=== PATIENT | male | born 1985 | race Caucasian/White ===

== ENCOUNTER 2017-08-28 03:56 | Emergency (ER) | payer MEDICAID, OTHER ==
[~2017-08-28] VITALS: Ht 175.3 cm; Wt 86.2 kg
[~2017-08-28 03:56] MED LIST: ADDERALL 30 MG30 MG ORAL; AMPICILLIN250 MG PO; COLACE100 MG ORAL; DEPAKOTE250 MG PO; DILAUDID8 MG PO; KEPPRA1000 MG ORAL; NEURONTIN800 MG ORAL; VALPROIC A500 MG/10 ORAL; XANAX2 MG ORAL; iron PO; multivit PO
[2017-08-28 04:10] VITALS: BP 165/97
--- NOTE | 2017-08-28 04:21 | Emergency Room Report ---
History of Present Illness General Chief Complaint: Seizure Source: Patient Present Illness HPI 32-year-old male, history of seizures, on Vimpat, Keppra, and gabapentin, also history of stomach cancer on chemotherapy, presenting with seizure Patient states that he was at his grandmothers house, proceeded to have a 3 minute generalized tonic-clonic seizure. Had some urinary incontinence. No tongue biting. Patient has been compliant with his medications States that he normally gets seizures, almost every other day, does initially come to the emergency room, but he came to the emergency room today because since his grandmother was with him, his grandmother called 911 He is currently denying any headache neck pain motor or sensory weakness. No fever no chills. Has otherwise been in his healthy state Allergies: Coded Allergies: ACETAMINOPHEN (Verified Allergy, Unknown, 03/18/16) CHLORPROMAZINE (Verified Allergy, Unknown, 03/15/16) HALOPERIDOL (Verified Allergy, Unknown, 03/15/16) NSAIDS (NON-STEROIDAL ANTI-INFLAMMA (Unverified Allergy, Unknown, 03/15/16) COPIED FROM UNCODED SECTION Patient History Past Medical History: see triage record Past Surgical History: none Pertinent Family History: none Reviewed Nursing Documentation: PMH: Agreed, PSxH: Agreed Nursing Documentation-PMH Hx Cardiac Problems: No - gastric bypass,sepsis,gallbladder surgery Hx Asthma: Yes Hx Cancer: No Hx Gastrointestinal Problems: Yes Hx Seizures: Yes Review of Systems All Other Systems: negative except mentioned in HPI Physical Exam Vital Signs Date Time Temp Pulse Resp B/P (MAP) Pulse Ox O2 Delivery O2 Flow Rate FiO2 08/28/17 03:59 97.9 85 16 165/97 100 Room Air Sp02 EP Interpretation: reviewed, normal General Appearance: normal inspection, well appearing, no apparent distress, alert, GCS 15, non-toxic Head: normocephalic, atraumatic Eyes: bilateral eye normal inspection, bilateral eye PERRL, bilateral eye EOMI ENT: normal ENT inspection, normal pharynx, normal voice, moist mucus membranes Neck: normal inspection, full range of motion, supple Respiratory: normal inspection, lungs clear, normal breath sounds, no respiratory distress, no retraction, no wheezing, speaking full sentences, chest symmetrical Cardiovascular #1: normal inspection, regular rate, rhythm, normal capillary refill Cardiovascular #2: 2+ radial (R), 2+ radial (L) Gastrointestinal: normal inspection, non tender, soft, non-distended, no guarding Musculoskeletal: normal inspection, back normal, normal range of motion, non- tender Neurologic: normal inspection, alert, oriented x3, responsive, tick sewer III-XII nml as tested, motor strength/tone normal, sensory intact, normal gait, speech normal Psychiatric: normal inspection, judgement/insight normal, memory normal Skin: normal inspection, normal color, no rash, warm/dry, well hydrated, normal turgor Medical Decision Making Diagnostic Impression: Primary Impression: Seizure disorder Additional Impression: Alcohol use ER Course 32-year-old male, history of seizures with p/w seizure DDX: Primary seizure, triggered by infection UTI/PNA vs. dehydration vs. medication non compliance Electrolyte disturbance: hypoglycemia vs. hyponatremia vs. hypocalcemia vs. hypomagnesemia Cardiac: Arrythmia/acs Intracranial pathology: intracranial bleed, stroke Tox Plan: BGM EKG Labs CT head is unnecessary at this time, no neurological signs or symptoms, no history of trauma ER course: No further seizures in ED Has been stable during ED stay. AOx4, no neurological signs or symptoms Disposition: Patient wants to leave AMA before labs are resulted Patient is clinically sober, is free from from distracting injury, and has intact judgement and capacity to decide to leave against medical advice. Patient verbalized understanding of my concern and my need to check labs , but patient states "I want to leave ". I explained to patient the risks of leaving AMA and patient informed that if they leave, they could get worse, ould become become critically ill, possibly become disabled or . Patient verbalized back to me understanding of these risks but still wants to leave. Patient is to follow up with their primary care doctor in 5 days and neurologist within 1 week. Strict return precautions discussed such as severe headache, fever, chills, neck pain, prolonged or increased frequency of seizures. Patient verbalized understanding and agrees with plan. EKG Diagnostic Results EP Interpretation: Yes Rate: normal Rhythm: NSR ST Segments: No acute changes ASA given to patient: No Rhythm Strip EP Interpretation: Yes Rate: 80 Rhythm: NSR, no PVCs, no ectopy Chest X-ray CXR: Ordered: Yes 1 view Indication: Chest pain EP interpretation: Yes Interpretation: No consolidation, no effusion, no PTX, no acute cardiopulmonary disease Impression: No acute disease Electronically signed by Kierra Walker MD Laboratory Tests Test 08/28/17 04:41 White Blood Count 4.5 K/UL (4.8-10.8) L Red Blood Count 4.51 M/UL (4.70-6.10) L Hemoglobin 12.5 G/DL (14.2-18.0) L Hematocrit 39.0 % (42.0-52.0) L Mean Corpuscular Volume 86 FL (80-99) Mean Corpuscular Hemoglobin 27.7 PG (27.0-31.0) Mean Corpuscular Hemoglobin Concent 32.0 G/DL (32.0-36.0) Red Cell Distribution Width 15.4 % (11.6-14.8) H Platelet Count 215 K/UL (150-450) Mean Platelet Volume 6.3 FL (6.5-10.1) L Neutrophils (%) (Auto) 65.5 % (45.0-75.0) Lymphocytes (%) (Auto) 20.6 % (20.0-45.0) Monocytes (%) (Auto) 6.9 % (1.0-10.0) Eosinophils (%) (Auto) 6.2 % (0.0-3.0) H Basophils (%) (Auto) 0.8 % (0.0-2.0) Sodium Level 137 MMOL/L (136-145) Potassium Level 5.6 MMOL/L (3.5-5.1) H Chloride Level 102 MMOL/L (98-107) Carbon Dioxide Level 28 MMOL/L (21-32) Anion Gap 7 mmol/L (5-15) Blood Urea Nitrogen 5 mg/dL (7-18) L Creatinine 0.7 MG/DL (0.55-1.30) Estimate Glomerular Filtration Rate > 60 mL/min (>60) Glucose Level 78 MG/DL (74-106) Calcium Level 8.9 MG/DL (8.5-10.1) Total Bilirubin 0.6 MG/DL (0.2-1.0) Aspartate Amino Transferase (AST) 126 U/L (15-37) H Alanine Aminotransferase (ALT) 153 U/L (12-78) H Alkaline Phosphatase 260 U/L (46-116) H Total Protein 7.8 G/DL (6.4-8.2) Albumin 3.8 G/DL (3.4-5.0) Globulin 4.0 g/dL Albumin/Globulin Ratio 0.9 (1.0-2.7) L Lipase 109 U/L (73-393) Salicylates Level 0.3 ug/mL (2.8-20) L Acetaminophen Level < 2 MCG/ML (10-30) L Serum Alcohol 62 mg/dL Last Vital Signs Date Time Temp Pulse Resp B/P (MAP) Pulse Ox O2 Delivery O2 Flow Rate FiO2 08/28/17 03:59 97.9 85 16 165/97 100 Room Air Disposition: AGAINST MEDICAL ADVICE Condition: Improved Referrals: [facility],REFERRING (PCP) Patient Instructions: Seizure, Adult AlfonsooKierra M.D. Aug 28, 2017 04:21
[2017-08-28 05:16] LABS: BASOPHILS % (AUTO) 0.8 % (0.0-2.0); EOSINOPHILS % (AUTO) 6.2 % (0.0-3.0); HEMOGLOBIN 12.5 G/DL (14.2-18.0); LYMPHOCYTES % (AUTO) 20.6 % (20.0-45.0); MEAN CORPUSCULAR VOLUME 86 FL (80-99); MONOCYTES % (AUTO) 6.9 % (1.0-10.0); NEUTROPHILS % (AUTO) 65.5 % (45.0-75.0); PLATELET COUNT 215 K/UL (150-450); RED BLOOD COUNT 4.51 M/UL (4.70-6.10); RED CELL DISTRIBUTION WIDTH 15.4 % (11.6-14.8); WHITE BLOOD COUNT 4.5 K/UL (4.8-10.8)
[2017-08-28 05:30] VITALS: BP 165/97
[2017-08-28 05:33] LABS: ANION GAP 7 mmol/L (5-15); BLOOD UREA NITROGEN 5 mg/dL (7-18); CALCIUM 8.9 MG/DL (8.5-10.1); CARBON DIOXIDE 28 MMOL/L (21-32); CHLORIDE 102 MMOL/L (98-107); CREATININE 0.7 MG/DL (0.55-1.30); SODIUM 137 MMOL/L (136-145)
[2017-08-28 05:37] LABS: ALANINE AMINOTRANSFERASE 153 U/L (12-78); ALBUMIN 3.8 G/DL (3.4-5.0); ALBUMIN/GLOBULIN RATIO 0.9 (1.0-2.7); ALKALINE PHOSPHATASE 260 U/L (46-116); ASPARTATE AMINO TRANSFERASE 126 U/L (15-37); BILIRUBIN,TOTAL 0.6 MG/DL (0.2-1.0)
[2017-08-28 05:42] LABS: POTASSIUM 5.6 MMOL/L (3.5-5.1)
--- NOTE | 2017-08-28 14:43 | Diagnostic Imaging Report ---
Indication: Altered mental status Technique: XRAY Chest 1v Comparison: None Findings: Heart size and mediastinal contours are within normal limits. There is streaky opacification in the left lower lung possibly related to subsegmental atelectasis however given history of seizures/altered mental status developing pneumonia or aspiration is not entirely excluded. No pleural effusion. No pneumothorax. No acute osseous abnormality seen. Impression: Streaky opacities at the left base thought to be related to subsegmental atelectasis. Pneumonia or additional etiologies including aspiration not entirely excluded, especially given history of altered mental status/seizures. This is slightly discrepant from the preliminary interpretation documented in the electronic medical record. Findings of the final report was discussed with or the ED 14:15 on 08/28/17.
--- NOTE | 2017-08-30 15:01 | Cardiology Report ---
APPROVED REPORT EKG Measurement Heart [id number] CO 158P38 [id number] Sinus rhythm with marked sinus arrhythmia Otherwise normal ECG
== END 2017-08-28 05:30 | disposition left against medical advice (07) ==
LOC: EMR 04:17
DX: G40.409 Other generalized epilepsy and epileptic syndromes, not intractable, without status epilepticus (principal); C16.9 Malignant neoplasm of stomach, unspecified; Z79.899 Other long term (current) drug therapy; Z72.89 Other problems related to lifestyle; Z88.6 Allergy status to analgesic agent; Z88.8 Allergy status to other drugs, medicaments and biological substances; J45.909 Unspecified asthma, uncomplicated; Z87.19 Personal history of other diseases of the digestive system
CPT/HCPCS: 36415; 71045; 80053; 80329; 83690; 85025; 93005; 99284